=== PATIENT | male | born 1960 | race Caucasian/White ===

== ENCOUNTER → 2019-09-27 | Outpatient (CLI) | payer OTHER ==
[~2019-09-27] VITALS: Ht 180.3 cm; Wt 70.3 kg
[~2019-09-27] MED LIST: ASPIRIN EC325 M1 PO; COMBIVENT INH; LIPITOR40 MG PO; LOPRESSOR50 MG PO; NEURONTIN 300M300 M2 PO; NIACIN 500 MG500 M1 PO; NORVASC 2.5 MG2.5 M1 PO; PLAVIX 75 MG TA75 MG PO; ZETIA10 MG PO
[2019-09-27 07:52] VITALS: BP 190/98
[2019-09-27 08:03] LABS: HEMATOCRIT 49.1 % (42.0-52.0); HEMOGLOBIN 16.2 gm/dL (14.0-18.0); MCH 29.8 pg (26.0-34.0); MCV 90.2 fL (80.0-100.0); RBC 5.45 mil/uL (4.50-6.00); RDW 14.9 % (10.5-14.5); WBC 10.8 thou/uL (4.0-11.0)
[2019-09-27 08:10] LABS: CALCIUM 9.8 mg/dL (8.5-10.1); CREATININE 0.9 mg/dL (0.7-1.3); POTASSIUM 4.7 mmol/L (3.5-5.1)
--- NOTE | 2019-09-27 18:09 | CATHLAB ---
[facility] [address] [place] [address] INVASIVE PROCEDURE REPORT Name: ASIA BALTAZAR Room #: VICTOR HUGO JOSH Covarrubias#: [id number] Admission: 09/27/19 Attend Phys: Mark Lan, Discharge: Date of : 56 Report #: [id number] THIS REPORT FOR: //name// APPROVED REPORT Study performed: 09/27/2019 07:54:48 Patient Details Patient Status: Out-Patient Room #: The patient is a 59 year-old male Event Personnel Mark Lan Riffler Tender, Alcira Dial RN, Abbi Sun RTR Scrub, Wero Long RTR Scrub, Keshav Alcaraz Monitor Procedures Performed Left Heart Cath w/or w/o Coronaries [id number] [facility] Indication Chest pain Procedure Narrative The Right Groin^ was infiltrated with 1% Lidocaine subcutaneous anesthesia. A SHEATH BRITE-TIP 6F X 11CM ([id number]) sheath was inserted into the RFA^. Coronary angiography was performed using coronary diagnostic catheters. The right coronary system was accessed and visualized with a JR4 catheter. The left coronary system was accessed and visualized with a JL4 catheter. The left ventricle was accessed and visualized with a PIGTAIL catheter. Left ventricular/Aortic Valve gradient assessed via catheter pullback. Left ventriculogram was performed in 30 degree projection. Hemostasis was obtained with manual pressure following sheath removal without any complications. The patient tolerated the procedure well and there were no complications associated with the procedure. There was no hematoma. Intraoperative Conscious Sedation Sedation start time: 8.44 Case end Time: 8.59 Fentanyl 100.0 mcg Versed 2.0 mg Fluoro Time: 26.20 minutes Dose: DAP 131763.00 cGycm2 144 mGy Contrast Type and Amount: Visipaque 120 ml [facility] [place] [address] INVASIVE PROCEDURE REPORT Name: ASIA BALTAZAR Room #: VICTOR HUGO Covarrubias#: [id number] Admission: 09/27/19 Attend Phys: Mark Lan, Discharge: Date of : 56 Report #: [id number] Hemodynamics The aortic pressure is 138/65 mmHg with a mean of 94 mmHg. The left ventricular pressure is 149/12 mmHg with a mean of mmHg. The left ventricular end diastolic pressure is 23 mmHg. There was no gradient across the aortic valve upon pullback. Pullback from the left ventricle to the aorta revealed no gradient across the aortic valve. PCI Technique Lesion Percutaneous coronary intervention was performed on the Unspecified. Conclusion #1 hyperdynamic LV function EF 70% range #2 left main mild ostial disease giving rise to LAD and circumflex #3 LAD extends around apex with only mild irregularity. No occlusive disease #4 circumflex OM nondominant with mild irregularity #5 dominant right with moderate diffuse disease throughout the mid vessel 50-60% long and then up more preserved but relatively small PDA PREM. No indication for intervention. Recommendations plan: Continue aggressive risk factor modification. Follow-up will be arranged. Peripheral vascular intervention per Dr. Peters. <ELECTRONICALLY SIGNED> By: Mark Lan MD, FACC 09/27/191808 08 08 Mark Lan MD, FACC /INF
--- NOTE | 2019-09-29 11:14 | EKG ---
[address] [address] ELECTROCARDIOGRAM REPORT Name: ASIA BALTAZAR Room #: [facility] Satish#: [id number] Admission: 09/27/19 Attend Phys: Mark Lan MD, Discharge: Date of : 56 Report #: [id number] THIS REPORT FOR: //name// [facility] Test Date: 2019-09-27 Test Time: 07:43:35 Pat Name: ASIA BALTAZAR Department: Room: Gender: Care Management Specialist: [facility] : 1960 Requested By: Mark Lan Order Number: [id number] MD: Esau Marquez Measurements Intervals [place] Rate: 65 P: 75 PA: 180 QRS: 69 QRSD: 90 T: 58 QT: 407 QTc: 424 Interpretive Statements Sinus rhythm Probable anteroseptal infarct, old No previous ECG available for comparison Electronically Signed On 09-29-2019 11:14:40 INJECTION MOLDER by Esau Marquez [email or web address] <ELECTRONICALLY SIGNED> By: Esau Marquez MD 09/29/19 1114 0743 0743 MD ALEJANDRO Lucia
== END | disposition home or self-care (01) ==
LOC: CATH 07:22
PROVIDERS: Internal Medicine Cardiovascular Disease
DX: R07.9 Chest pain, unspecified (principal); I25.10 Atherosclerotic heart disease of native coronary artery without angina pectoris; I70.212 Atherosclerosis of native arteries of extremities with intermittent claudication, left leg; K55.1 Chronic vascular disorders of intestine; I70.1 Atherosclerosis of renal artery; I71.9 Aortic aneurysm of unspecified site, without rupture; I10 Essential (primary) hypertension; E78.5 Hyperlipidemia, unspecified; J44.9 Chronic obstructive pulmonary disease, unspecified; F17.210 Nicotine dependence, cigarettes, uncomplicated; Z98.890 Other specified postprocedural states; Z82.49 Family history of ischemic heart disease and other diseases of the circulatory system; Z79.899 Other long term (current) drug therapy; Z88.8 Allergy status to other drugs, medicaments and biological substances; Z79.82 Long term (current) use of aspirin

== ENCOUNTER 2019-10-09 09:03 | Outpatient (CLI) | payer OTHER ==
[~2019-10-09] VITALS: Ht 175.3 cm; Wt 70.3 kg
[~2019-10-09 09:03] MED LIST changes: -NEURONTIN 300M300 M2 PO; -NIACIN 500 MG500 M1 PO; -ZETIA10 MG PO
[2019-10-09 09:42] LABS: CREATININE 0.8 mg/dL (0.7-1.3)
[2019-10-09] MEDS ORDERED: LOPRESSOR50 MG PO (10:56)
[2019-10-09] MEDS ORDERED: ZETIA10 MG PO (10:57)
[2019-10-09] MEDS ORDERED: NEURONTIN 300M300 M2 PO (10:57)
[2019-10-09] MEDS ORDERED: NIACIN 500 MG500 M1 PO (10:58)
--- NOTE | 2019-10-09 18:43 | NUR ---
PATIENT BROUGHT TO UNIT AND SETTLED INTO BED. SITE CHECKED WITH RN AND IS IN TACT. PATIENT RESTLESS WANTING TO LEAVE. PATIENT EDUCATED ON WHY IT IS IMPORTANT TO STAY POST CATH. PATIENT SITE CHECKED UPON DISCHAGE. IV REMOVED AND PATIENT GETTING DRESSED. DC PAPER WORK PLACED IN CHART.
--- NOTE | 2019-10-19 11:28 | HC ---
[facility] [place] [address] CONSULTATION Name: ASIA BALTAZAR Room #: [facility]#: [id number] Admission: 10/09/19 Attend Phys: Keshav Peters MD Discharge: 10/09/19 Date of : 56 Report #: [id number] THIS REPORT FOR: //name// CC: Keshav MALAVE unknown DATE OF SERVICE: 10/09/2019 REFERRING PHYSICIAN: We were asked by Dr. Peters to see the patient. HISTORY OF PRESENT ILLNESS: The patient is a 59-year-old with an abdominal aortic aneurysm. The patient has a history of peripheral arterial occlusive disease and has bilateral iliac stents placed. Current arteriogram shows that there is an aneurysm just above the stents with mural thrombus above a seemingly saccular component. 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 PAST MEDICAL HISTORY: Significant for hypertension. The patient is a longtime smoker. MEDICATIONS: Amlodipine, aspirin, Lipitor, Plavix, Neurontin, Combivent, Lopressor, and niacin. ALLERGIES: None known. SOCIAL HISTORY: As mentioned, the patient is a longtime smoker. He lives in [place]. FAMILY HISTORY: Not pertinent. Both parents had strokes, however. REVIEW OF SYSTEMS: GENERAL: Denies weight change, fever. EYES: Denies change in vision. ENT: Denies hearing loss or chronic sinus problems. CARDIAC: Exertional chest discomfort. VASCULAR: Claudication. RESPIRATORY: Denies cough or hemoptysis. GASTROINTESTINAL: No blood in stools. No nausea or vomiting. GENITOURINARY: No hematuria, no dysuria. MUSCULOSKELETAL: No new bone or joint discomfort. SKIN: No rash or infection. NEUROLOGIC: No motor or sensory dysfunction. ENDOCRINE: No tremor, no goiter. HEMATOLOGIC: No bruisability or bleeding. [facility] [address] [place] [address] CONSULTATION Name: DELANEYASIA Ranjit [id number] Admission: 10/09/19 Attend Phys: Keshav Peters MD Discharge: 10/09/19 Date of : 56 Report #: [id number] PHYSICAL EXAMINATION: CONSTITUTIONAL: The patient is lying in bed after his arteriogram. VITAL SIGNS: Blood pressure is 150/60, heart rate 55. The patient seems comfortable. HEENT: No scleral icterus, no arcus, normocephalic. NECK: No mass. 2+ left carotid bruit is audible. CHEST: Clear. HEART: Rhythm regular with a faint systolic flow murmur in the right sternal border. ABDOMEN: Soft, no mass. EXTREMITIES: No clubbing, cyanosis, or edema, 2+ popliteal pulses bilaterally, 2+ right femoral pulse. Left femoral was recently instrumented. ASSESSMENT AND PLAN: The patient has an abdominal aortic aneurysm. I discussed stent graft implant with the patient. Risks and details, options and alternatives, were discussed. The patient understands all of this and wishes to proceed. We will try to arrange for elective stent graft implant after the holidays per the patient's wishes. Thank you for the consult. <ELECTRONICALLY SIGNED> By: Antonio Palomares MD 10/19/19 1128 1515 [id number] Antonio Palomares MD /nt
== END 2019-10-09 19:06 | disposition home or self-care (01) ==
LOC: CAT 09:03 → 2N 17:24 → CAT 19:06
PROVIDERS: Nuclear Medicine Nuclear Cardiology
DX: I70.211 Atherosclerosis of native arteries of extremities with intermittent claudication, right leg (principal); I71.4 Abdominal aortic aneurysm, without rupture; I10 Essential (primary) hypertension; I25.10 Atherosclerotic heart disease of native coronary artery without angina pectoris; E78.00 Pure hypercholesterolemia, unspecified; F17.210 Nicotine dependence, cigarettes, uncomplicated; Z98.890 Other specified postprocedural states; Z79.899 Other long term (current) drug therapy; Z88.8 Allergy status to other drugs, medicaments and biological substances; Z90.49 Acquired absence of other specified parts of digestive tract
CPT/HCPCS: 10081

== ENCOUNTER → 2020-01-29 | Outpatient (CLI) | payer OTHER ==
[~2020-01-29] VITALS: Ht 182.9 cm; Wt 65.8 kg
[~2020-01-29] MED LIST changes: +HYDROCODON-ACE1 EAC5 PO; +NEURONTIN 300M300 M2 PO; +NIACIN 500 MG500 M1 PO; +ZETIA10 MG PO
[2020-01-29 11:15] LABS: ABSOLUTE NEUTROPHILS 7.3 thou/uL (1.4-8.2); BASOPHILS 1.4 % (0.0-2.0); HEMATOCRIT 45.9 % (42.0-52.0); HEMOGLOBIN 15.1 gm/dL (14.0-18.0); LYMPHOCYTES 15.8 % (24.0-44.0); MCH 28.9 pg (26.0-34.0); MCV 87.6 fL (80.0-100.0); MONOCYTES 8.1 % (1.0-8.0); PLATELET COUNT 458 thou/uL (150-400); POLYS 73.7 % (36.0-66.0); RBC 5.24 mil/uL (4.50-6.00); RDW 13.9 % (10.5-14.5); WBC 9.9 thou/uL (4.0-11.0)
[2020-01-29 11:21] LABS: URINE BLOOD 1+ (Negative); URINE CLARITY CLOUDY; URINE COLOR YELLOW; URINE GLUCOSE-RANDOM* NEGATIVE (Negative); URINE KETONES NEGATIVE (Negative); URINE PROTEIN (DIPSTICK) TRACE (Negative); URINE UROBILINOGEN 0.2 E.U./dl (0.2-1.0)
[2020-01-29 11:22] LABS: ICTOTEST (BILI CONFIRMATORY) Negative (Negative); URINE BILIRUBIN NEGATIVE (Negative); URINE LEUKOCYTES-REFLEX 3+ (Negative); URINE NITRITE-REFLEX POSITIVE (Negative)
[2020-01-29 11:27] LABS: ALBUMIN 3.5 g/dL (3.4-5.0); CALCIUM 9.1 mg/dL (8.5-10.1); CREATININE 0.8 mg/dL (0.7-1.3); POTASSIUM 4.7 mmol/L (3.5-5.1); TOTAL BILIRUBIN 0.4 mg/dL (<0.1-1.0); TOTAL PROTEIN 7.2 g/dL (6.4-8.2)
[2020-01-29 11:31] LABS: BACTERIA-REFLEX >30 Many /HPF (None Seen); CASTS None Seen /LPF (None Seen); CRYSTALS None Seen /LPF (None Seen); SQUAMOUS 0-3 Few /LPF (0-3); URINE RBC 3-10 Few /HPF (0-2); URINE WBC-REFLEX >25 Many /HPF (0-5)
[2020-01-29 11:36] LABS: APTT 34.8 Seconds (24.5-32.8); PROTIME 10.2 Seconds (9.3-11.4)
--- NOTE | 2020-03-06 11:18 | EKG ---
[facility] [address] ELECTROCARDIOGRAM REPORT Name: ASIA BALTAZAR Room #: [facility] ..#: [id number] Admission: Attend Phys: Antonio Palomares MD Discharge: Date of : 56 Report #: [id number] THIS REPORT FOR: cc: Germain Dai MD, Jonathan D. MD Lundgren,Grayson Carrillo MD [facility] ~ THIS REPORT FOR: //name// [facility] Test Date: 2020-01-29 Test Time: 11:14:57 Pat Name: ASIA BALTAZAR Department: Room: Gender: Automation Analyst: mack moore : 1960 Requested By: Antonio Palomares Order Number: [id number] MD: Grayson Agustin Measurements Intervals [place] Rate: 52 P: 82 SD: 200 QRS: 76 QRSD: 90 T: 66 QT: 441 QTc: 411 Interpretive Statements Sinus rhythm Cannot rule out septal infarct, old Compared to ECG 09/27/2019 07:43:35 No significant change was found Electronically Signed On 01-30-2020 8:28:06 BEET WORKER by Grayson Agustin [email or web address] <ELECTRONICALLY SIGNED> By: Grayson Agustin MD, [facility] 01/30/20 0828 1114 1114 Grayson Agustin MD, [facility] /EPI
== END | disposition home or self-care (01) ==
LOC: PRE 12-11 09:54 → TBA 12-11 11:27 → PAC 11:14 → PRE 02-03 07:04 → TBA 02-21 07:17 → PRE 02-21 07:17 → EDSTATUS 02-21 08:37 → PRE 02-21 10:27 → PAC 03-06 09:35 → EDSTATUS 03-06 09:36 → OR 03-06 10:04 → EDSTATUS 03-06 10:36 → PRE 03-06 10:37 → EDSTATUS 03-06 14:09
PROVIDERS: Surgery Vascular Surgery
DX: I71.4 Abdominal aortic aneurysm, without rupture (principal); Z53.8 Procedure and treatment not carried out for other reasons; I10 Essential (primary) hypertension; J45.909 Unspecified asthma, uncomplicated; E78.5 Hyperlipidemia, unspecified; F17.210 Nicotine dependence, cigarettes, uncomplicated; I25.10 Atherosclerotic heart disease of native coronary artery without angina pectoris; Z98.890 Other specified postprocedural states; Z79.899 Other long term (current) drug therapy
CPT/HCPCS: 50010

== ENCOUNTER → 2020-04-15 | Outpatient (CLI) | payer OTHER ==
[~2020-04-15] VITALS: Ht 180.3 cm; Wt 72.6 kg
[~2020-04-15] MED LIST changes: +MUPIROCIN22 GM NARES
[2020-04-15 09:17] LABS: ABSOLUTE NEUTROPHILS 6.2 thou/uL (1.4-8.2); BASOPHILS 1.1 % (0.0-2.0); EOSINOPHILS 1.5 % (0.0-3.0); HEMATOCRIT 44.9 % (42.0-52.0); LYMPHOCYTES 18.6 % (24.0-44.0); MCH 28.3 pg (26.0-34.0); MCHC 33.3 g/dL (28.0-37.0); MONOCYTES 9.6 % (1.0-8.0); PLATELET COUNT 403 thou/uL (150-400); POLYS 69.2 % (36.0-66.0); RBC 5.28 mil/uL (4.50-6.00); RDW 15.3 % (10.5-14.5); URINE BILIRUBIN NEGATIVE (Negative); URINE BLOOD NEGATIVE (Negative); URINE CLARITY CLEAR; URINE COLOR YELLOW; URINE GLUCOSE-RANDOM* NEGATIVE (Negative); URINE KETONES NEGATIVE (Negative); URINE LEUKOCYTES-REFLEX NEGATIVE (Negative); URINE NITRITE-REFLEX NEGATIVE (Negative); URINE PROTEIN (DIPSTICK) NEGATIVE (Negative); URINE SPECIFIC GRAVITY >= 1.030 (1.005-1.035)
[2020-04-15 09:26] LABS: PROTIME 10.4 Seconds (9.3-11.4)
[2020-04-15 09:58] LABS: ALBUMIN 3.6 g/dL (3.4-5.0); CALCIUM 9.2 mg/dL (8.5-10.1); CREATININE 0.9 mg/dL (0.7-1.3); POTASSIUM 4.4 mmol/L (3.5-5.1); TOTAL BILIRUBIN 0.3 mg/dL (<0.1-1.0); TOTAL PROTEIN 7.3 g/dL (6.4-8.2)
--- NOTE | 2020-04-16 07:58 | EKG ---
[facility] [place] [address] ELECTROCARDIOGRAM REPORT Name: ASIA BALTAZAR Room #: [facility].#: [id number] Admission: Attend Phys: Antonio Palomares MD Discharge: Date of : 56 Report #: [id number] THIS REPORT FOR: cc: Germain Dai MD, Jonathan D. MD Lundgren,Grayson Carrillo MD [facility] THIS REPORT FOR: //name// [facility] Test Date: 2020-04-15 Test Time: 09:11:02 Pat Name: ASIA BALTAZAR Department: Room: Gender: Duty Manager: [facility] : 1960 Requested By: Antonio Palomares Order Number: [id number] MD: Grayson Agustin Measurements Intervals [place] Rate: 69 P: 83 NE: 183 QRS: 73 QRSD: 93 T: 43 QT: 389 QTc: 417 Interpretive Statements Sinus rhythm Normal tracing Compared to ECG 01/29/2020 11:14:57 Septal Q waves are no longer present Electronically Signed On 04-16-2020 7:56:22 CDT by Grayson Agustin [email or web address] <ELECTRONICALLY SIGNED> By: Grayson Agustin MD, FAC 04/16/20 0756 0911 0911 Grayson Agustin MD, [facility] /EPI
== END | disposition home or self-care (01) ==
LOC: CATH 08:00 → PRE 04-17 08:34 → EDSTATUS 04-17 10:34 → CATH 04-17 10:36 → PRE 04-17 16:01
PROVIDERS: Surgery Vascular Surgery; ATTEND Nuclear Medicine Nuclear Cardiology
DX: Z01.818 Encounter for other preprocedural examination (principal); I73.9 Peripheral vascular disease, unspecified; Z11.59 Encounter for screening for other viral diseases; I10 Essential (primary) hypertension; E78.5 Hyperlipidemia, unspecified; J45.909 Unspecified asthma, uncomplicated; K21.9 Gastro-esophageal reflux disease without esophagitis; Z98.890 Other specified postprocedural states; Z79.899 Other long term (current) drug therapy